=== PATIENT | female | born 1980 | race Two or more races ===

== ENCOUNTER 2017-05-09 18:24 | Observation (INO) | payer OTHER ==
[~2017-05-09] VITALS: Ht 157.5 cm; Wt 54.4 kg
--- NOTE | ~2017-05-09 | CR6 ---
[facility] A Service of [facility] RADIOLOGY TEXT RESULTS PATIENT: ALBERTO SIMENTAL LOCATION: CEDOF : 76 UNIT #: [id number] AGE: [address]: Je Joe MD SEX: F ORDER DR: [id number] [facility] [address] [place], [place] [address] [id number] MR#: [id number] Acc #: [id number] NAME: ALBERTO SIMENTAL : 1980 SEX: F STUDY DATE/TIME: 05/10/2017 9:13 UNIT: CEDOF ROOM: 33157 STUDY DESCRIPTION: CR Abdomen Portable Sng View Attending Physician: Je Joe M.D. Ordering Physician: Tunde Kendall D.O. Primary Care Physician: No Primary Care Physician MEDICAL IMAGING REPORT This report is preliminary unless electronic signature is present EXAM AP abdomen DATE 05/10/2017 at 09:13 HISTORY Abdominal pain with nausea, diarrhea today. Lower abdominal pain. COMPARISON CT abdomen and pelvis with contrast 05/10/2017. FINDINGS There is significant urinary bladder distension with excreted contrast material. IV contrast was administered earlier today for CT abdomen and pelvis. 2 stones are thought to be present in the right upper renal pole measuring 4 and 5 mm each. The stone in the region of the left upper renal pole measures 5 mm, another stone in the left lower renal pole measures nearly 6 mm. The described stone in the left distal ureter on the CT earlier today has cannot confidently be seen. There may be a 4 mm calcification over the left upper sacral margin measuring 4 mm, but this is not entirely certain. There is a mild to moderate stool burden in the ascending colon. Bowel gas partially obscures the kidneys. IMPRESSION 1. Questionable 4 mm stone over the left upper sacrum, which may correspond to the findings on the CT abdomen performed earlier today. 2. Bilateral renal stones as described. [facility] A Service of [facility] RADIOLOGY TEXT RESULTS PATIENT: ALBERTO SMIENTAL LOCATION: CEDOF : 76 UNIT #: [id number] AGE: [address]: Je Joe MD SEX: F ORDER DR: 3. Significant distension of the urinary bladder with excreted contrast. Dictated by... Eladia Winslow M.D. THIS IS AN ELECTRONICALLY VERIFIED REPORT Eladia Winslow M.D. at 05/10/2017 5:03 PM JOSE/pratibha TD: 05/10/2017 14:31 JOB #: [id number] MEDICAL IMAGING REPORT Page 1 of 1 COPY
--- NOTE | ~2017-05-09 | CT2 ---
[facility] A Service of [facility] RADIOLOGY TEXT RESULTS PATIENT: ALBERTO SIMENTAL LOCATION: CEDOF 37252-11 : [birth year] UNIT #: [id number] AGE: [address]: Je Joe MD SEX: F ORDER DR: [id number] [facility] [address] [place], [place] [address] [id number] I MR#: [id number] Acc #: [id number] NAME: ALBERTO SIMENTAL : 1980 SEX: F STUDY DATE/TIME: 05/10/2017 00:26 UNIT: CEDOF ROOM: 60456 STUDY DESCRIPTION: CT Abd and Pelv W Cont Attending Physician: Je Joe M.D. Ordering Physician: Tunde Kendall D.O. Primary Care Physician: No Primary Care Physician MEDICAL IMAGING REPORT This report is preliminary unless electronic signature is present EXAM CT abdomen and pelvis, 05/10, at 0026 hours. INDICATIONS Lower abdominal pain with nausea and diarrhea that started today. TECHNIQUE Axial images were obtained through the abdomen and pelvis following IV contrast administration. Multiplanar reformats were obtained. This CT exam was performed with one or more of the following radiation dose reduction techniques: automatic exposure control, adjustment of mA and/or kV according to patient size, and iterative reconstruction. COMPARISON No comparison. FINDINGS ABDOMEN: There is some mild atelectasis in the lung bases. The gallbladder is normal. There is no biliary obstruction. There is a small right renal cyst. There are bilateral nonobstructing renal stones. Minimal hydroureter noted on the left secondary to a for 4 mm stone at the level of the pelvic brim. No right-side ureteral stones are seen. Solid organs are otherwise normal. Unopacified GI tract is normal. PELVIS: The appendix is normal. The remainder of the unopacified GI tract is normal as well. Urinary bladder is normal. Solid pelvic organs are within normal limits. IMPRESSION 1. 4 mm stone in the left ureter at the level of the pelvic brim which is causing mild left ureteral dilatation but no significant hydronephrosis. 2. Bilateral nonobstructing renal stones. [facility] A Service of [facility] RADIOLOGY TEXT RESULTS PATIENT: ALBERTO SIMENTAL LOCATION: [facility] 00003-21 : 78 UNIT #: [id number] AGE: [address]: Je Joe MD SEX: F ORDER DR: 3. Normal unopacified GI tract, including the appendix. Dictated by... Je Mulligan Jr., M.D. THIS IS AN ELECTRONICALLY VERIFIED REPORT Je Mulligan Jr., M.D. at 05/10/2017 9:16 PM ESTEBAN/gladys TD: 05/10/2017 15:06 JOB #: [id number] MEDICAL IMAGING REPORT Page 1 of 1 COPY
--- NOTE | ~2017-05-09 | CO ---
Unit #: [id number] #: [id number] Patient: ALBERTO SIMENTAL [id number] [address] [place], [place] [address] [id number] I MR#: [id number] NAME: ALBERTO SIMENTAL ROOM: 97059 Age: 36 Sex: F Admission Date: 05/10/2017 : 1980 Attending Physician: Je Joe M.D. Consultation Date: 05/10/2017 CONSULTATION REPORT REASON FOR CONSULTATION Ureteral calculus. HISTORY OF PRESENT ILLNESS This 36-year-old woman who was [place] Citizen and speaks no Vietnamese. She is accompanied by her , who functions as animal physiology teacher. She presented to the emergency department after 9 o'clock last evening and has been held overnight. She was diagnosed with a stone in the mid left ureter 3 x [address] scan. She has improved with morphine and Rocephin and feels ready for discharge home subsequent to my review of the options with her below. Her symptoms started with low abdominal pain yesterday, nausea, diarrhea. Pain progressed. No fever or chills. Again, it is improved. She has no prior history of kidney stones. No gross hematuria or urinary infection. PAST MEDICAL HISTORY Chronic back pain. PAST SURGICAL HISTORY None. MEDICATIONS None. ALLERGIES None known. FAMILY HISTORY Noncontributory. SOCIAL HISTORY Nonsmoker, [place] Citizen, with child attending. REVIEW OF SYSTEMS Limited by language barrier. PHYSICAL EXAMINATION GENERAL: The patient is awake, alert, fairly comfortable. VITAL SIGNS: Temperature 97.9 degrees, pulse 77, blood pressure 100/61, respirations 16, oxygen saturation 100%. HEENT: Unremarkable. Good teeth. LUNGS: Clear. CARDIAC: Rate and rhythm regular. ABDOMEN: Soft with mild left CVA tenderness. Unit #: [id number] #: [id number] Patient: ALBERTO SIMENTAL EXTREMITIES: No edema. NEURO: Intact. DIAGNOSTIC STUDIES LABORATORY RESULTS: Include urinalysis 100 to 200 rbc's, 5 to 10 wbc's, no bacteria. Urine culture is sent. BUN 12, creatinine 0.6. Remainder of CMP normal. Hemoglobin 12.8, WBC 7.5. IMAGING STUDIES: CT scan was performed with intravenous contrast and while report is pending, does show the stone described above in the mid ureter. Contrast is likely obscuring several stones in both kidneys. IMPRESSION Small to medium mid left ureteral calculus. I have reviewed options with the patient and her including admission for pain control and observation, immediate ureteroscopy, outpatient management which they prefer. PLAN We will discharge with [place] #30, 5/325 use as needed; tamsulosin 0.4 daily use, #14 with 1 refill. We will see her in the office in 1 week with a KUB and also obtain a KUB this morning before discharge. Dictated by... Je Joe M.D. SYED/sly TD: 05/10/2017 14:31 JOB #: [id number] CC: [facility] CONSULTATION REPORT Page 1 of 1 X Je Joe MD X CONSULTATION REPORT
[2017-05-09 18:50] LABS: URINE SOURCE CLEAN CATCH
[2017-05-09 19:10] LABS: URINE APPEARANCE CLEAR; URINE BILIRUBIN NEG (NEG); URINE BLOOD 3+ (NEG); URINE COLOR YELLOW; URINE GLUCOSE NEG (NEG); URINE KETONE NEG (NEG); URINE LEUKOCYTE ESTERASE 1+ (NEG); URINE NITRATE NEG (NEG); URINE PROTEIN TRACE (NEG); URINE SPECIFIC GRAVITY 1.019 (1.003-1.035); URINE UROBILINOGEN 0.2 MG/DL (NEG)
[2017-05-09 19:14] LABS: CULTURE INDICATED? YES; U HYALINE CASTS AUWI 0-2 /[LPF]; URBCS1 AUWI 100-200 /[HPF] (0-2); URINE BACTERIA AUWI NEG (NEGATIVE); URINE SQUAMOUS EPITHELIAL CELL OCC /[HPF]
[2017-05-09 19:17] LABS: BASOPHIL% 0.5 % (0-2.5); EOSINOPHIL# 0.3 X10e3 (0-0.7); EOSINOPHIL% 4.2 % (0.0-7.0); HEMATOCRIT 39.3 % (35.0-45.0); HEMOGLOBIN 12.8 gm/dL (12.0-16.0); LYMPHOCYTE# 2.8 X10e3 (1.0-3.5); LYMPHOCYTE% 37.2 % (17.0-45.0); MEAN CELL VOLUME 90.1 FL (83-96); MEAN CORPUSCULAR HEMOGLOBIN 29.3 PG (28-34); MEAN CORPUSCULAR HGB CONC 32.5 g/dL (30-36); MEAN PLATELET VOLUME 7.1 FL (6.5-11.5); MONOCYTE# 0.7 X10e3 (0-1.0); MONOCYTE% 9.2 % (3.0-12.0); NEUTROPHIL# 3.6 X10e3 (1.5-7.1); NEUTROPHIL% 48.9 % (40-75); PLATELET COUNT 304 X10e3 (140-420); RED BLOOD COUNT 4.36 X10e (3.90-5.30); RED CELL DISTRIBUTION WIDTH 12.2 % (11.0-15.5); WHITE BLOOD COUNT 7.5 X10e3 (4.0-10.5)
[2017-05-09 19:18] LABS: DIFF IND NO
[2017-05-09 19:40] LABS: ALBUMIN SERUM 4.2 g/dL (3.5-5.0); BILIRUBIN, DIRECT 0.1 mg/dL (0.0-0.2); BILIRUBIN,INDIRECT 0.3 mg/dL (0.0-0.9); BILIRUBIN,TOTAL 0.4 mg/dL (0.2-2.0); CALCIUM SERUM 8.7 mg/dL (8.4-10.2); CREATININE SERUM 0.6 mg/dL (0.6-1.4); GLOM FILT RATE Estimated 115.6 mL/min (>60); POTASSIUM 3.8 mmol/L (3.5-5.1); PROTEIN TOTAL SERUM 7.3 g/dL (6.0-8.3)
[2017-05-11] MEDS ORDERED: PATIENT'S PHARMACY (14:33)
[2017-05-11] MEDS ORDERED: FLOMAX0.4 M1 PO (14:33)
[2017-05-11] MEDS ORDERED: HYDROCODON-ACE1 EAC7 PO (14:33)
[2017-05-11] MEDS ORDERED: IBUPROFEN PO (14:33)
[2017-05-12] MEDS ORDERED: KEFLEX500 M2 PO (20:00)
[2017-05-12] MEDS ORDERED: ACETAMINOPHEN325 MG PO (20:03)
== END 2017-05-10 09:42 | disposition home or self-care (01) ==
LOC: CED 18:24 → CEDOF 05-10 01:36 → CED 05-10 01:46 → CEDOF 05-10 01:46
DX: N20.1 Calculus of ureter (principal); G89.29 Other chronic pain
CPT/HCPCS: 36415; 74000; 74177; 80048; 80076; 81003; 83690; 84703; 85025; 87086; 96361; 96365; 96372; 96374; 96375; 96376; 99285; G0378; J0500; J0696; J2270; J2405; Q9967